=== PATIENT | male | born 1985 | race Caucasian/White ===

== ENCOUNTER 2018-04-14 09:28 | Emergency (ER) | payer MEDICAID ==
[~2018-04-14] VITALS: Ht 188 cm; Wt 170.5 kg
[2018-04-14 09:32] VITALS: BP 179/107; Ht 188 cm; Wt 170.5 kg
[2018-04-14] MEDS ORDERED: NAPROSYN500 MG PO (11:18)
[2018-04-14] MEDS ORDERED: NORCO 7.5/325 T1 TA1 PO (11:18)
== END 2018-04-14 11:20 | disposition home or self-care (01) ==
LOC: D.ER 09:28
DX: M76.61 Achilles tendinitis, right leg (principal); M79.671 Pain in right foot

== ENCOUNTER 2018-05-01 05:04 | Emergency (ER) | payer MEDICAID ==
[~2018-05-01] VITALS: Ht 188 cm; Wt 170.5 kg
[~2018-05-01 05:04] MED LIST: NAPROSYN500 MG PO; NORCO 7.5/325 T1 TA1 PO
[2018-05-01 06:06] LABS: BASOPHILS 0.1 % (0-2); EOSINOPHILS 0.5 % (0-7); HEMATOCRIT 43.8 % (42.0-54.0); HEMOGLOBIN 15.6 g/dL (13.5-17.5); IMMATURE GRANULOCYTES 0.1 % (0-5); LYMPHOCYTES 9.7 % (15-50); MCH 31.6 pg (26.0-34.0); MCHC 35.6 g/dL (31.0-37.0); MCV 88.7 fL (80.0-100.0); MEAN PLATELET VOLUME 9.9 fL (7.4-10.4); MONOCYTES 3.8 % (2-11); NEUTROPHILS 85.8 % (40-80); PLATELET COUNT 267 10x3/uL (130-400); RBC 4.94 10x6/uL (4.20-6.10)
[2018-05-01 06:23] LABS: APPEARANCE CLEAR (CLEAR); BACTERIA FEW /hpf (NONE SEEN); BILIRUBIN NEGATIVE (NEGATIVE); COLOR YELLOW (YELLOW); EPITHELIAL CELLS OCC /hpf (0-5); GLUCOSE NEGATIVE (NEGATIVE); KETONE NEGATIVE (NEGATIVE); MUCUS <1+ /lpf (NONE SEEN); NITRITE NEGATIVE (NEGATIVE); PROTEIN TRACE mg/dL (NEGATIVE); RED CELLS - URINE 0-5 /hpf (0-5); SPECIFIC GRAVITY 1.015 (1.005-1.020); UROBILINOGEN NORMAL (NORMAL); WHITE CELLS - URINE RARE /hpf (0-5)
[2018-05-01 06:57] LABS: ALBUMIN 4.1 g/dL (3.4-5.0); BILIRUBIN - TOTAL 0.51 mg/dL (0.2-1.3); CALCIUM 9.2 mg/dL (8.5-10.1); CARBON DIOXIDE 28.2 mmol/L (21.0-32.0); CREATININE - SERUM 1.3 mg/dL (0.6-1.3); POTASSIUM - SERUM 4.2 mmol/L (3.5-5.1); PROTEIN - SERUM 7.1 g/dL (6.4-8.2)
[2018-05-01] MEDS ORDERED: FLOMAX0.4 MG PO (07:27)
[2018-05-01] MEDS ORDERED: NORCO 5/325 TAB1 TAB PO (07:27)
== END 2018-05-01 07:51 | disposition home or self-care (01) ==
LOC: D.ER 05:04
PROVIDERS: Family Medicine
DX: N20.1 Calculus of ureter (principal)